=== PATIENT | female | born 1965 | race Caucasian/White ===

== ENCOUNTER 2021-11-17 06:21 | Emergency (ER) | payer MEDICARE, OTHER, SELFPAY ==
[2021-11-17 06:37] VITALS: BP 135/77; PULSE 68; RESP 18; TEMP 36.6; O2SAT 99; BMI 36.7
--- NOTE | 2021-11-17 07:00 | ED_ITS ---
HPI - Female Genitourinary General Chief complaint: Urogenital Problems, Female <Tiffanie Landry MD - Last Filed: 11/17/21 08:11> Stated complaint: low back, and pelvic pain and blood in urine <Tiffanie Landry MD - Last Filed: 11/17/21 08:11> Time Seen by Provider: 11/17/21 06:33 <Tiffanie Landry MD - Last Filed: 11/17/21 08:11> Source: patient <Tiffanie Landry MD - Last Filed: 11/17/21 08:11> Mode of arrival: ambulatory <Tiffanie Landry MD - Last Filed: 11/17/21 08:11> Limitations: no limitations <Tiffanie Landry MD - Last Filed: 11/17/21 08:11> History of Present Illness HPI Narrative: Patient presents with a 4 day history of pain in the abdominal area. Pain seems to be mostly suprapubic in nature but she also complains of bilateral upper and lower abdominal pain as well as left flank pain. States that she is taking Tylenol and ibuprofen with no improvement in her pain. There is a little bit of nausea but no vomiting. Appetite has been normal. Her last bowel movement was earlier today at approximately 2:00 a.m. and was normal per her report, no blood. She has a history of multiple prior abdominal surgeries including bilateral oophorectomy, cholecystectomy, appendectomy in 2 prior C- sections. She denies any prior bowel obstructions. She suspects symptoms were secondary to urinary infection and presented to the urgent care yesterday. The note is incomplete that I can review much of the findings. This in summary showed a UA that was positive only for trace amount of blood, a wet prep that was positive for yeast. Blood work for chemistries and white count were overall reassuring. The UA did not suggest infection. Patient was prescribed Diflucan p.o. x1. She elected not to take the medication because there was a list of potential cardiac complications. Of note, she does not have an eye history of active cardiac disease and does not take medications that would interact incorrectly with the fluconazole. She states that she picked up some Monistat instead and did start treating with this but has not noted resolution of her symptoms. Of note, this was less than 24 hours ago. She is having any fever. Diagnosed with BV a month ago and elected not to treat out of concerns for the medications from that as well. Wet prep yesterday did not show BV. She denies any potential for STD exposure. Notes and labs are completely reviewed. She has multiple drug intolerances but none appear consistent with allergy with the exception of macrolides. Past medical history, obesity, PVCs but no true cardiac disease. Multiple prior surgeries reviewed as above. <Tiffanie Landry MD - Last Filed: 11/17/21 08:11> Related Data Home medications: Previous Rx's Medication Instructions Recorded fluconazole 150 mg tablet 150 mg PO ONCE #1 tab 11/16/21 <Tiffanie Landry MD - Last Filed: 11/17/21 08:11> Allergies/Adverse reactions: Allergies Allergy/AdvReac Type Severity Reaction Status Date / Time azithromycin Allergy Intermediate Diarrhea, Verified 11/17/21 06:41 hives adhesive Allergy Mild Rash Verified 11/17/21 06:41 codeine Allergy Mild Headache Verified 11/17/21 06:41 Macrolides Allergy Mild Hives Uncoded 11/17/21 06:41 Sulfa drugs Allergy Mild Swollen Uncoded 10/06/21 08:16 eyes Erythromycin AdvReac Intermediate Nausea and Uncoded 10/06/21 08:16 vomiting <Tiffanie Landry MD - Last Filed: 11/17/21 08:11> Review of Systems Narrative: ROS is negative for generalized, HEENT, cardiovascular, respiratory, other GI, other urinary, other gynecological, skin or musculoskeletal changes. <Tiffanie Landry MD - Last Filed: 11/17/21 08:11> [facility] Medical History: Medical History Closed head injury with concussion Cyst of right ovary Right retinal detachment (2015) <Tiffanie Landry MD - Last Filed: 11/17/21 08:11> Surgical History: Surgical History History of 2 sections (2002) History of appendectomy (1974) History of bilateral oophorectomy History of detached retina repair (2015) History of laparoscopic cholecystectomy (2012) History of tonsillectomy (1984) <Tiffanie Landry MD - Last Filed: 11/17/21 08:11> Family History: Family History Mother Breast cancer Heart disease Rheumatoid arthritis Brother Gastric cancer Father Heart disease <Tiffanie Landry MD - Last Filed: 11/17/21 08:11> Social History: Social History Narrative: Disability Exercises three times per week- walk, bike, 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 , instructional aide, 2 kids Non-smoker- quit age 27, hx 7 pack years Rarely consumes alcohol Smoking Status: Former smoker Do you use any of these nicotine containing products: None Second hand tobacco smoke exposure: No How often do you have a drink containing alcohol: never How often do you have six or more drinks on one occasion: Never AUDIT-C Alcohol total score: 0 Non-prescribed substance use: denies use <Tiffanie Landry MD - Last Filed: 11/17/21 08:11> Exam Const: Vital Signs, click to edit/add: Vital Signs - 24 hr 11/17/21 06:37 Temperature 97.8 F Pulse Rate [Right Pulse Oximeter] 68 Respiratory Rate 18 Blood Pressure [Ri ght Upper Arm] 135/77 Pulse Oximetry 99 Oxygen Delivery Me thod Room Air <Tiffanie Landry MD - Last Filed: 11/17/21 08:11> Vital Signs, click to edit/add: Vital Signs - 24 hr 11/17/21 06:37 Temperature 97.8 F Pulse Rate [Right Pulse Oximeter] 68 Respiratory Rate 18 Blood Pressure [Ri ght Upper Arm] 135/77 Pulse Oximetry 99 Oxygen Delivery Me thod Room Air <Kristen Nolan MD - Last Filed: 11/17/21 08:50> General appearance: cooperative and well kempt <Tiffanie Landry MD - Last Filed: 11/17/21 08:11> Other: Moderate insight <Tiffanie Landry MD - Last Filed: 11/17/21 08:11> HENMT: Common normals: normocephalic <MD Ashley Dow Last Filed: 11/17/21 08:11> Head and scalp: normocephalic <MD Ashley Dow Last Filed: 11/17/21 08:11> Face and sinus: normal facial exam <MD Ashley Dow Last Filed: 11/17/21 08:11> Mouth: oral and palatal mucosa normal <MD Ashley Dow Last Filed: 11/17/21 08:11> Throat: posterior oropharynx normal <MD Ashley Dow Last Filed: 11/17/21 08:11> Eye: Common normals: conjunctivae normal and no scleral icterus <MD Ashley Dow Last Filed: 11/17/21 08:11> Conjunctiva: conjunctiva(e) normal <MD Ashley Dow Last Filed: 11/17/21 08:11> Neck & C-Spine: Common normals: no lymphadenopathy <MD Ashley Dow Last Filed: 11/17/21 08:11> Resp: Common normals: normal respiratory effort <MD Ashley Dow Last Filed: 11/17/21 08:11> Effort & inspection: able to speak in complete sentences <MD Ashley Dow Last Filed: 11/17/21 08:11> Cardio: Common normals: regular rate, regular rhythm, S1 normal heart sound, S2 normal heart sound, no murmurs and peripheral pulses 2+ throughout <MD Ashley Dow Last Filed: 11/17/21 08:11> Rate: regular rate <MD Ashley Dow Last Filed: 11/17/21 08:11> Rhythm: regular rhythm <MD Ashley Dow Last Filed: 11/17/21 08:11> Heart sounds: S1 normal and S2 normal <MD Ashley Dow Last Filed: 11/17/21 08:11> Peripheral pulses: pulses 2+ throughout <MD Ashley Dow Last Filed: 11/17/21 08:11> GI: Other: Abdomen is obese but soft. It does not seem distended. Bowel sounds are normoactive throughout. She is diffusely tender throughout but it does concentrated but in the suprapubic region, there is certainly no rebound tenderness nor guarding. No masses, no hepatosplenomegaly. <Tiffanie Landry MD - Last Filed: 11/17/21 08:11> : Other: Mild left-sided CVA tenderness noted but no rebound tenderness nor guarding. <Tiffaine Landry MD - Last Filed: 11/17/21 08:11> Neuro: Speech: speech normal <Tiffanie Landry MD - Last Filed: 11/17/21 08:11> Motor exam: strength 5/5 throughout and no tremor noted <Tiffanie Landry MD - Last Filed: 11/17/21 08:11> Psych: Appearance: well kempt <Tiffanie Landry MD - Last Filed: 11/17/21 08:11> Attitude: engaged <Tiffanie Landry MD - Last Filed: 11/17/21 08:11> Activity/motor behavior: appropriate eye contact <Tiffanie Landry MD - Last Filed: 11/17/21 08:11> Mood and affect: euthymic mood <Tiffanie Landry MD - Last Filed: 11/17/21 08:11> Insight: fair <MD Ashley Dow Last Filed: 11/17/21 08:11> Judgement: fair <Tiffanie Landry MD - Last Filed: 11/17/21 08:11> Skin: Common normals: no rashes or lesions noted <MD Ashley Dow Last Filed: 11/17/21 08:11> General skin exam: no rashes or lesions noted <MD Ashley Dow Last Filed: 11/17/21 08:11> Course Reevaluation(s) Reevaluation #1: CT is back, see report below. No changes to Dr. Landry's discharge plans. <Kristen Nolan MD - Last Filed: 11/17/21 08:50> Time: 08:49 <Kristen Nolan MD - Last Filed: 11/17/21 08:50> Vital Signs Vital signs: Initial Vital Signs Temperature 97.8 F 11/17/21 06:37 Temperature Source Temporal Artery Scan 11/17/21 06:37 Pulse Rate 68 11/17/21 06:37 Respiratory Rate 18 11/17/21 06:37 Blood Pressure 135/77 11/17/21 06:37 Blood Pressure Mean 96 11/17/21 06:37 Blood Pressure Position Sitting 11/17/21 06:37 Pulse Oximetry 99 11/17/21 06:37 Oxygen Delivery Method 11/17/21 06:37 Vital Signs Temperature 97.8 F 11/17/21 06:37 Pulse Rate 68 11/17/21 06:37 Respiratory Rate 18 11/17/21 06:37 Blood Pressure 135/77 11/17/21 06:37 Pulse Oximetry 99 11/17/21 06:37 Oxygen Delivery Method 11/17/21 06:37 Temperature 97.8 F 11/17/21 06:37 Pulse Rate 68 11/17/21 06:37 Respiratory Rate 18 11/17/21 06:37 Blood Pressure 135/77 11/17/21 06:37 Pulse Oximetry 99 11/17/21 06:37 Oxygen Delivery Method 11/17/21 06:37 <Tiffanie Landry MD - Last Filed: 11/17/21 08:11> Initial Vital Signs Temperature 97.8 F 11/17/21 06:37 Temperature Source Temporal Artery Scan 11/17/21 06:37 Pulse Rate 68 11/17/21 06:37 Respiratory Rate 18 11/17/21 06:37 Blood Pressure 135/77 11/17/21 06:37 Blood Pressure Mean 96 11/17/21 06:37 Blood Pressure Position Sitting 11/17/21 06:37 Pulse Oximetry 99 11/17/21 06:37 Oxygen Delivery Method 11/17/21 06:37 Vital Signs Temperature 97.8 F 11/17/21 06:37 Pulse Rate 68 11/17/21 06:37 Respiratory Rate 18 11/17/21 06:37 Blood Pressure 135/77 11/17/21 06:37 Pulse Oximetry 99 11/17/21 06:37 Oxygen Delivery Method 11/17/21 06:37 Temperature 97.8 F 11/17/21 06:37 Pulse Rate 68 11/17/21 06:37 Respiratory Rate 18 11/17/21 06:37 Blood Pressure 135/77 11/17/21 06:37 Pulse Oximetry 99 11/17/21 06:37 Oxygen Delivery Method 11/17/21 06:37 <Kristen Nolan MD - Last Filed: 11/17/21 08:50> MDM - Female Genitourinary MDM Narrative Medical decision making narrative: Abdominal pain is nonspecific. Trace amount of blood in urine collected yesterday is suspicious for urinary stone especially with the flank pain and CVA tenderness that I am able to elicit on today's exam. Patient will be treated with Tylenol while we await CT scan. Counseled patient that her symptoms really could be from the yeast infection as well. I would not have any concerns with her taking Diflucan if this is found to be the case. UA is repeated just to make sure that no signs of infection have developed in the interim and this is pending at this time. Additional labs to check lipase and liver function, yesterday's labs will not be repeated with the exception of the UA. Suspecting urinary stone versus yeast vaginitis versus urethritis as most likely diagnosis. <Tiffanie Landry MD - Last Filed: 11/17/21 08:11> Differential Diagnosis Differential diagnosis: Likely urinary tract infection and bacterial vaginosis (Use infection, ureteral stone, pancreatitis, gastritis, enteritis.) <Tiffanie Landry MD - Last Filed: 11/17/21 08:11> Medical Records Attestation: I reviewed the patient's medical records. <Tiffanie Landry MD - Last Filed: 11/17/21 08:11> Lab Data Attestation: I reviewed the patient's lab results. <Tiffanie Landry MD - Last Filed: 11/17/21 08:11> Labs: Lab Results 11/17/21 11/17/21 Range/Units 07:00 07:15 Total Bilirubin 0.5 (0.1-1.5) mg/dL Direct Bilirubin 0.1 (0.0-0.5) mg/dL AST 25 (12-35) U/L ALT 21 (4-35) U/L Alkaline Phosphatase 152 H (40-150) U/L C-Reactive Protein 1.1 H (0.5-1.0) mg/dL Total Protein 7.4 (6.0-8.3) g/dL Albumin 4.4 (3.3-5.0) g/dL Lipase 73 (23-300) U/L Urine Color Yellow (Yellow) Urine Appearance Clear (Clear) Urine pH 6.0 (5.0-8.5) Ur Specific [place] 1.020 (1.000-1.030) Urine Protein 1+ A (Negative) Urine Glucose (UA) Negative (Negative) Urine Ketones Negative (Negative) Urine Blood Trace-intact A (Negative) Urine Nitrite Negative (Negative) Urine Bilirubin Negative (Negative) Urine Urobilinogen 0.2 (0.2-1.0) Ur Leukocyte Esterase Negative (Negative) Urine RBC 0-2 (0-2) Urine WBC 2-5 (0-5) Ur Squamous Epith Cells Moderate A (None-Few) Urine Bacteria None (None) <Tiffanie Landry MD - Last Filed: 11/17/21 08:11> Lab Results 11/17/21 11/17/21 Range/Units 07:00 07:15 Total Bilirubin 0.5 (0.1-1.5) mg/dL Direct Bilirubin 0.1 (0.0-0.5) mg/dL AST 25 (12-35) U/L ALT 21 (4-35) U/L Alkaline Phosphatase 152 H (40-150) U/L C-Reactive Protein 1.1 H (0.5-1.0) mg/dL Total Protein 7.4 (6.0-8.3) g/dL Albumin 4.4 (3.3-5.0) g/dL Lipase 73 (23-300) U/L Urine Color Yellow (Yellow) Urine Appearance Clear (Clear) Urine pH 6.0 (5.0-8.5) Ur Specific [place] 1.020 (1.000-1.030) Urine Protein 1+ A (Negative) Urine Glucose (UA) Negative (Negative) Urine Ketones Negative (Negative) Urine Blood Trace-intact A (Negative) Urine Nitrite Negative (Negative) Urine Bilirubin Negative (Negative) Urine Urobilinogen 0.2 (0.2-1.0) Ur Leukocyte Esterase Negative (Negative) Urine RBC 0-2 (0-2) Urine WBC 2-5 (0-5) Ur Squamous Epith Cells Moderate A (None-Few) Urine Bacteria None (None) <Kristen Nolan MD - Last Filed: 11/17/21 08:50> Imaging Data CT scan - abdomen: Attestation: I have reviewed the pertinent imaging results. <Kristen Lenz MD - Last Filed: 11/17/21 08:50> Radiologist's impression: Patient: WILBER CHRISTENSEN Facility:?[facility] Patient ID:?[id number] Site Patient ID:?[id number]. Site :?[id number] Study:?CT Abdomen/Pelvis WITHOUT-11/17/2021 7:31:28 AM Ordering Physician:Brenda Moreno Final Report: INDICATION: Left flank pain TECHNIQUE: CT abdomen and pelvis without contrast COMPARISON: None. FINDINGS: Kidney/ureters: Kidneys are normal in caliber. Nonobstructing right intrarenal calculus measuring 6 mm. No evidence of ureteral calculi or hydronephrosis. Liver/gallbladder/bile ducts: The liver is normal in size, shape and attenuation. The gallbladder surgically absent. No biliary dilatation. Spleen/pancreas/adrenal glands: The spleen, adrenal glands and pancreas are within normal limits. GI tract: No evidence of bowel obstruction or inflammation. Colonic diverticulosis without evidence of acute diverticulitis. Appendix not discretely visualized but there is no inflammation in right lower quadrant. Abdominal wall/omentum/peritoneum: No free air or significant free fluid. No mass or inflammation. Small fat containing umbilical hernia. Lymph nodes: No lymphadenopathy. Pelvis: Unremarkable pelvis. Lower chest: Unremarkable. Bones: No acute fracture or gross facet lesion. IMPRESSION: 1. Nonobstructing right intrarenal calculus measuring 6 mm. No evidence of ureteral calculi or hydronephrosis. 2. No identifiable cause for patient`s reported left flank pain. 3. Colonic diverticulosis without evidence of diverticulitis. Please note that all CT scans at this facility use dose modulation, iterative reconstruction, and/or weight-based dosing when appropriate to reduce radiation dose to as low as reasonably achievable. Dictated by Devon Bosch MD @ 11/17/2021 8:45:35 AM (Electronic Signature) <Kristen Nolan MD - Last Filed: 11/17/21 08:50> Discharge Plan Discharge Clinical Impression: Candidal urethritis <Tiffanie Landry MD - Last Filed: 11/17/21 08:11> Patient Disposition: Home, Self-Care <Tiffanie Landry MD - Last Filed: 11/17/21 08:11> Condition: Stable <Tiffanie Landry MD - Last Filed: 11/17/21 08:11> Additional Instructions: The CT scan is reassuring. You do have a couple of kidney stones but as we discussed, they are not in the urethra and therefore are not the cause of your symptoms. There also quite small and do not need any specific treatment. Your repeat urine test today continues to not show any signs of infection. It does show a trace amount of blood which could be explained by the yeast infection. As we discussed, I do think the fluconazole medication at your prescribed yesterday is safe for you. Remove the main concern has to do with interactions with other heart medications which you do not take. I would recommend that you continue using the Monistat cream as well, focusing on the urethral area for application also. Remember that the fluconazole medication he is working for a few days. I would like for you to follow-up with her primary care provider for repeat pelvic exam if things are not improving in 4-5 days. I would not say that your constipated but there certainly is a fair amount of stool in her colon. If you do feel constipated, I would take a stool softener like Colace, drink lots of fluids and remain active. If your symptoms worsen significantly, I would recommend repeat emergency room evaluation. <Tiffanie Landry MD - Last Filed: 11/17/21 08:11> Activity Level: No Restrictions <Tiffanie Landry MD - Last Filed: 11/17/21 08:11> No Restrictions <Kristen Nolan MD - Last Filed: 11/17/21 08:50> Discharge Diet: Regular <Tiffanie Landry MD - Last Filed: 11/17/21 08:11> Regular <Kristen Nolan MD - Last Filed: 11/17/21 08:50> Prescriptions: No Action fluconazole 150 mg tablet 150 mg PO ONCE Qty: 1 0RF Hold Instructions: pt. does not want to take it Rx Instructions: as a single dose <Tiffanie Landry MD - Last Filed: 11/17/21 08:11> Follow Up/Referrals: Shilpi Velasco PA-C [Primary Care Provider] - <Tiffanie Landry MD - Last Filed: 11/17/21 08:11> Stand Alone Forms: MyHealth Info Instructions <Tiffanie Landry MD - Last Filed: 11/17/21 08:11>
--- NOTE | 2021-11-17 07:03 | CRLHL7_ITS ---
For Patients: As a result of the Century Cures Act, medical imaging exams and procedure reports are released immediately into your electronic medical record. You may view this report before your referring provider. If you have questions, please contact your health care provider. INDICATION: Left flank pain TECHNIQUE: CT abdomen and pelvis without contrast COMPARISON: None. FINDINGS: Kidney/ureters: Kidneys are normal in caliber. Nonobstructing right intrarenal calculus measuring 6 mm. No evidence of ureteral calculi or hydronephrosis. Liver/gallbladder/bile ducts: The liver is normal in size, shape and attenuation. The gallbladder surgically absent. No biliary dilatation. Spleen/pancreas/adrenal glands: The spleen, adrenal glands and pancreas are within normal limits. GI tract: No evidence of bowel obstruction or inflammation. Colonic diverticulosis without evidence of acute diverticulitis. Appendix not discretely visualized but there is no inflammation in right lower quadrant. Abdominal wall/omentum/peritoneum: No free air or significant free fluid. No mass or inflammation. Small fat containing umbilical hernia. Lymph nodes: No lymphadenopathy. Pelvis: Unremarkable pelvis. Lower chest: Unremarkable. Bones: No acute fracture or gross facet lesion. IMPRESSION: 1. Nonobstructing right intrarenal calculus measuring 6 mm. No evidence of ureteral calculi or hydronephrosis. 2. No identifiable cause for patient`s reported left flank pain. 3. Colonic diverticulosis without evidence of diverticulitis. Please note that all CT scans at this facility use dose modulation, iterative reconstruction, and/or weight-based dosing when appropriate to reduce radiation dose to as low as reasonably achievable. Dictated by Devon Bosch MD @ 11/17/2021 8:45:35 AM (Electronically Signed)
[2021-11-17] MEDS: ACETAMINOPHEN 500 MG TABLET 1000 MG PO (07:19)
[2021-11-17 07:20] LABS: Appearance Urine Clear (Clear); Bilirubin Urine Negative (Negative); Blood Urine Trace-intact (Negative); Color Urine Yellow (Yellow); Glucose Urine Negative (Negative); Ketones Urine Negative (Negative); Leukocyte Esterase Urine Negative (Negative); Nitrite Urine Negative (Negative); Protein Urine 1+ (Negative); Urobilinogen Urine 0.2 (0.2-1.0)
[2021-11-17 07:30] LABS: RBC Urine 0-2 (0-2); Squamous Epithelial Cell Urine Moderate (None-Few)
[2021-11-17 07:40] LABS: Albumin* 4.4 g/dL (3.3-5.0)
[2021-11-17 07:42] LABS: Bilirubin Direct* 0.1 mg/dL (0.0-0.5); Bilirubin Total* 0.5 mg/dL (0.1-1.5)
[2021-11-17 07:43] LABS: Alanine Aminotransferase* 21 U/L (4-35); Alkaline Phosphatase* 152 U/L (40-150); Aspartate Amino Transferase* 25 U/L (12-35); Lipase* 73 U/L (23-300); Total Protein* 7.4 g/dL (6.0-8.3)
[2021-11-17 07:46] LABS: C Reactive Protein* 1.1 mg/dL (0.5-1.0)
--- NOTE | 2021-11-19 14:29 | PC.NURSE ---
pt called today requesting an antibiotic for her culture results that she accessed through her [facility] health info portal, Dr Alvarado reviewed and urine culture negative, likely a contaminant with mixed positive allan, pt called and recommended to her that she follow up if ongoing symptoms and that MD does not recommend an antibiotic at this time, pt states, So I would come in there and you guys wouldn't find anything and I would just , carrie pt ended call
== END 2021-11-17 08:54 | disposition home or self-care (01) ==
PROVIDERS: Family Medicine; Emergency Provider Family Medicine; PCP Physician Assistant Medical
DX: B37.41 Candidal cystitis and urethritis (principal)
CPT/HCPCS: 36415; 74176; 80076; 81001; 81003; 81015; 83690; 86140; 87086; 99284; A9270

== ENCOUNTER 2022-04-19 08:58 | Outpatient (CLI) | payer MEDICARE, OTHER, SELFPAY ==
--- NOTE | 2022-04-19 09:15 | CRLHL7_ITS ---
For Patients: As a result of the Century Cures Act, medical imaging exams and procedure reports are released immediately into your electronic medical record. You may view this report before your referring provider. If you have questions, please contact your health care provider. BILATERAL SCREENING MAMMOGRAM WITH COMPUTER-AIDED DETECTION TECHNIQUE: CC and MLO views were obtained. These mammographic images have been obtained using full-field digital technique. These mammographic images were interpreted with the benefit of computer-aided detection. COMPARISON FILM: 03/14/21, 02/25/20, 02/11/19. FINDINGS: There are scattered areas of fibroglandular density IMPRESSION: There is no radiographic evidence for malignancy. ASSESSMENT: BI-RADS Category 1: Negative RECOMMENDATION: Routine screening mammogram in 1 year. A lay language report of this examination will be provided to the patient. Pb Pinto M.D. Diagnostic Radiologist [email or web address] DODIE/Dictated by: Pb Pinto MD @ 04/19/2022 11:07:00 AM (Electronically Signed)
== END 2022-04-19 08:59 | disposition home or self-care (01) ==
LOC: MAMMO 08:59
PROVIDERS: PCP Physician Assistant Medical; Visit Provider Physician Assistant Medical
DX: Z12.31 Encounter for screening mammogram for malignant neoplasm of breast (principal)
CPT/HCPCS: 77067

== ENCOUNTER 2023-01-18 16:27 | Outpatient (CLI) | payer MEDICARE, SELFPAY ==
[2023-01-18 23:25] LABS: Chlamydia DNA Amplified* NOT DETECTED (No Detected); GC DNA Amplified* NOT DETECTED (No Detected)
== END 2023-01-18 16:28 | disposition home or self-care (01) ==
LOC: LKVREF 16:28
PROVIDERS: PCP Physician Assistant Medical; Visit Provider Physician Assistant Medical
DX: Z00.00 Encounter for general adult medical examination without abnormal findings (principal); Z11.3 Encounter for screening for infections with a predominantly sexual mode of transmission
CPT/HCPCS: 87491; 87591

== ENCOUNTER 2023-04-25 12:55 | Outpatient (CLI) | payer MEDICARE, SELFPAY ==
[2023-04-26 00:04] LABS: Chlamydia DNA Amplified* Not Detected (No Detected); GC DNA Amplified* Not Detected (No Detected)
== END 2023-04-25 12:56 | disposition home or self-care (01) ==
LOC: LKVREF 12:56
PROVIDERS: PCP Physician Assistant Medical; Visit Provider Nurse Practitioner Family
DX: R10.2 Pelvic and perineal pain (principal); Z11.3 Encounter for screening for infections with a predominantly sexual mode of transmission
CPT/HCPCS: 87491; 87591

== ENCOUNTER 2023-06-08 08:29 | Outpatient (CLI) | payer MEDICARE, SELFPAY ==
--- NOTE | 2023-06-08 08:45 | MM_ITS ---
Patient: WILBER DAVIS Facility:?[facility] Patient ID:?[id number] Site Patient ID:?[id number]. Site :?[id number] Study:?XRay-Breast Bilateral 3D W/CAD-06/08/2023 8:52:39 AM Ordering Physician:?Shilpi Velasco Final Report: BILATERAL SCREENING MAMMOGRAM WITH COMPUTER-AIDED DETECTION AND TOMOSYNTHESIS TECHNIQUE: CC and MLO views were obtained. These mammographic images have been obtained using full-field digital technique. These mammographic images were interpreted with the benefit of computer-aided detection. Breast Tomosynthesis was used in this interpretation. COMPARISON FILM: 04/19/22, 03/14/21, 02/25/20. FINDINGS: There are scattered areas of fibroglandular density. IMPRESSION: There is no radiographic evidence for malignancy. ASSESSMENT: BI-RADS Category 2: Benign RECOMMENDATION: Routine screening mammogram in 1 year. A lay language report of this examination will be provided to the patient. Pb Pinto M.D. Diagnostic Radiologist [email or web address] DSM/sp R& Transcribed: 2:03 p.m. SP/Dictated by: Pb Pinto MD @ 06/13/2023 10:17:00 AM Signed by:?Pb Pinto MD @06/13/2023 3:07:17 PM (Electronic Signature)
== END 2023-06-08 08:30 | disposition home or self-care (01) ==
LOC: MAMMO 08:30
PROVIDERS: PCP Physician Assistant Medical; Visit Provider Physician Assistant Medical
DX: Z12.31 Encounter for screening mammogram for malignant neoplasm of breast (principal)
CPT/HCPCS: 77063; 77067

== ENCOUNTER 2024-02-21 08:37 | Outpatient (CLI) | payer MEDICARE, SELFPAY | END 2024-02-21 08:38 | disposition home or self-care (01) | PROVIDERS: PCP Physician Assistant Medical; Visit Provider Physician Assistant Medical | DX: I10 Essential (primary) hypertension (principal); R53.83 Other fatigue; G47.9 Sleep disorder, unspecified; Z13.1 Encounter for screening for diabetes mellitus; Z11.59 Encounter for screening for other viral diseases; Z11.3 Encounter for screening for infections with a predominantly sexual mode of transmission | CPT/HCPCS: 80053; 84443; 86703; 86803; 87086 ==

== ENCOUNTER 2024-06-27 13:27 | Outpatient (CLI) | payer MEDICARE, SELFPAY ==
--- NOTE | 2024-06-27 13:40 | CRLHL7_ITS ---
For Patients: As a result of the Century Cures Act, medical imaging exams and procedure reports are released immediately into your electronic medical record. You may view this report before your referring provider. If you have questions, please contact your health care provider. INDICATION: BILATERAL SCREENING MAMMOGRAM, ASYMPTOMATIC 58 Y/O FEMALE COMPARISON: 06/08/23, 04/19/22, 03/14/21 TECHNIQUE: CC and MLO views were obtained. These mammographic images have been obtained using full-field digital technique. These mammographic images were interpreted with the benefit of computer aided detection and tomosynthesis. BREAST COMPOSITION: There are scattered areas of fibroglandular density. FINDINGS: No suspicious findings. ASSESSMENT: BI-RADS 1 Negative RECOMMENDATION: Annual screening mammogram. A lay language report of this examination will be provided to the patient. Dictated by: Pb Pinto MD @ 07/01/2024 12:10:07 (Electronically Signed)
== END 2024-06-27 13:28 | disposition home or self-care (01) ==
PROVIDERS: PCP Physician Assistant Medical; Visit Provider Physician Assistant Medical
DX: Z12.31 Encounter for screening mammogram for malignant neoplasm of breast (principal)
CPT/HCPCS: 77063; 77067